=== PATIENT | female | born 1985 | race Caucasian/White ===

== ENCOUNTER 2024-12-04 17:21 | Emergency (ER) | payer SELFPAY ==
[2024-12-04 17:39] VITALS: BP 119/80; PULSE 81; RESP 16; TEMP 37.3; O2SAT 98; BMI 19.9
--- NOTE | 2024-12-04 17:41 | XR_ITS ---
Examination: Ultrasound soft tissue neck Technique: Grayscale sonographic images soft tissue neck Date and time: December 04, 2024, 1904 hrs. Indications: Left neck submental pain and swelling beginning 5 days ago Findings: Small submandibular lymph node 8 x 7 x 11 mm There appears to be a 9 x 10 mm calcification in the left submandibular gland Impression: Small nonspecific submental lymph node Small calcification in the left submandibular gland If symptoms persist, suggest CT soft tissue neck post intravenous contrast follow-up
--- NOTE | 2024-12-04 17:41 | PD.EDRME ---
Rapid Medical Screening Exam RME Arrival date/time: 12/04/24 17:21 39-year-old female with no known medical history presents to the emergency room with a chief complaint of swelling and lumps in the left side of her neck x 4 days that are causing pain and irritation to her left ear I have greeted and performed a focused initial assessment of this patient. A comprehensive ED assessment and evaluation of the patient, analysis of all test results, and completion of the medical decision making process will be conducted by additional ED providers. Chief Complaint: Dental/Oral/Throat Vital signs: Vital Signs Temperature 99.1 F 12/04/24 17:39 Pulse Rate 81 12/04/24 17:39 Respiratory Rate 16 12/04/24 17:39 Blood Pressure 119/80 12/04/24 17:39 Pulse Oximetry (%) 98 12/04/24 17:39 Oxygen Delivery Method Room Air 12/04/24 17:39 Vital signs reviewed by provider: Yes
[2024-12-04 18:04] LABS: Basophils # (Auto) 0.1 Thou/mm3 (0.0-0.2); Basophils % (Auto) 1 % (0-2.5); Eosinophils # (Auto) 0.2 Thou/mm3 (0.0-0.5); Eosinophils % (Auto) 2 % (0-10); Hematocrit 36.4 % (36.0-46.0); Hemoglobin 12.8 g/dL (12.0-16.0); Immature Granulocytes Auto 0.01 Thou/mm3 (0.00-0.00); Lymphocytes # (Auto) 2.3 Thou/mm3 (1.0-4.8); Lymphocytes % (Auto) 33 % (10-50); Mean Corpuscular HGB Conc 35.2 g/dl (31.0-37.0); Mean Corpuscular Hemoglobin 34.1 pg (25.0-35.0); Mean Corpuscular Volume 97 fL (80-100); Monocytes # (Auto) 0.4 Thou/mm3 (0.0-0.8); Monocytes % (Auto) 6 % (0-12); Neutrophils # (Auto) 4.2 Thou/mm3 (1.8-7.7); Neutrophils % (Auto) 58 % (37-80); Nucleated Red Blood Cell # 0.00 Thou/mm3 (0.00-0.00); Nucleated Red Blood Cell % 0 /100 WBC (0); Platelet Count 217 Thou/mm3 (140-440); RDW Standard Deviation 44.8 fL (36.4-46.3); Red Blood Count 3.75 Miln/mm3 (4.00-5.20); White Blood Count 7.1 Thou/mm3 (3.6-11.0)
[2024-12-04 18:29] LABS: Alanine Aminotransferase 13 U/L (10-49); Albumin, Serum 4.5 gm/dL (3.5-5.0); Albumin/Globulin Ratio 1.9 (1.2-2.2); Alkaline Phosphatase 69 U/L (46-116); Anion Gap 8 (7-16); Aspartate Amino Transferase 22 U/L (0-34); BUN/Creatinine Ratio 9 Ratio (12-20); Bilirubin,Total 0.6 mg/dL (0.3-1.2); Blood Urea Nitrogen 7 mg/dL (9-23); Calcium 9.6 mg/dL (8.3-10.6); Calcium (Corrected) 9.6 mg/dL (8.5-10.1); Carbon Dioxide 26.2 mMol/L (20.0-31.0); Chloride 106 mMol/L (98-107); Creatinine (Component) 0.8 mg/dL (0.6-1.3); Estimated Creatinine Clearance 78.6 mL/min (>60); Globulin 2.4 gm/dL (2.3-3.5); Glucose 118 mg/dL (74-106); Osmolality,Calculated 278 (275-295); Potassium 3.7 mMol/L (3.4-5.1); Sodium 140 mMol/L (136-145); Total Protein 6.9 gm/dL (5.7-8.2); eGFR > 60 See Note
--- NOTE | 2024-12-04 21:43 | EDNOTE_ITS ---
ED General RME/HPI General Chief complaint: Dental/Oral/Throat Stated complaint: Left side lower jaw swelling X5 days Time Seen by Provider: 12/04/24 21:34 Arrival date/time: 12/04/24 17:21 CC: Sporadic intermittent left-sided lymphadenopathy HPI ongoing for the past 2 or 3 days this episode resulted in a golf ball size lymph node under the right jaw causing difficulty speaking. The patient states it was there , when she came in but at the time of the assessment it is completely resolved. Patient states she has a long history of lymphadenopathy and has had lymph nodes removed from the right side underneath the jaw. Patient is awake alert and oriented nontoxic-appearing denies any difficulty speaking or difficulty swallowing. Patient denies nausea vomiting headache blurred vision seeing spots. No OTC medicines taken for pain. RME / HPI RME / HPI narrative: 12/04/24 17:21 39-year-old female with no known medical history presents to the emergency room with a chief complaint of swelling and lumps in the left side of her neck x 4 days that are causing pain and irritation to her left ear I have greeted and performed a focused initial assessment of this patient. A comprehensive ED assessment and evaluation of the patient, analysis of all test results, and completion of the medical decision making process will be conducted by additional ED providers. Related Data Previous Rx's ?Medication ?Instructions ?Recorded prednisone 10 mg tablet 10 mg PO BID #8 tabs 5 Allergies Allergy/AdvReac Type Severity Reaction Status Date / Time No Known Allergies Allergy Verified 12/04/24 17:26 Review of Systems Review of Systems Narrative Review of Systems: GEN: No fever, no chills, no weight loss EYES: No discharge, no visual changes, no pain HEENT: No ear pain, no congestion, no sore throat PULM: No shortness of breath, no cough, no congestion CV: No chest pain, no dyspnea on exertion, no palpitations GI: No nausea, no vomiting, no diarrhea, no pain, no constipation : No frequency, no urgency, no dysuria MUSC/SKEL: No joint pain, no back pain SKIN: No rash PSYCH: No hallucinations, no depression HEME/LYMPH: No easy bleeding or bruising tendencies NEURO: No weakness, no headache Past Medical History Past Medical History NEUROLOGIC: Negative Neurological Disorders or Seizures CARDIAC: Negative Cardiac Disorders or Congestive Heart Failure RESPIRATORY: Negative Chronic Obstructive Pulmonary Disease (COPD) or Asthma GASTROINTESTINAL: Negative Gastrointestinal Disorders, Hepatitis or Colorectal Cancer GENITOURINARY: Negative Genitourinary Disorders, Renal Disease or Prostate Cancer REPRODUCTIVE: Positive Previous Pregnancies ( 2003', ); Negative Breast Cancer, Endometriosis, Pelvic Inflammatory Disease, Testicular Cancer or Uterine Prolapse MUSCULOSKELETAL: Negative Musculoskeletal Disorders, Bone Cancer or Carpal Tunnel Syndrome ENT: Negative Cataracts ENDOCRINE: Negative Endocrine Disorders, Diabetes Mellitus Type 1 or Diabetes Mellitus Type 2 HEMATOLOGIC: Positive Anemia; Negative Blood Disorders, Leukemia, Hemophilia, Thalassemia, Sickle Cell Disease or Clotting Problems OTHER HISTORY: Negative Hospitalization, Autoimmune Disease, Down Syndrome, Developmental Delay, Shingles, Falls, Blood Transfusions, Blood Transfusion Reaction, Anesthesia Reactions, Organ Transplant, Chemotherapy, Radiation Therapy, Hyperbaric Therapy, MRSA, VRSA, Vancomycin-Resistant Enterococci, Human Immunodeficiency Virus (HIV), Chicken Pox, Measles, Mumps, Rubella ([place] Measles), Pertussis, Clostridium Difficile, Breast Cancer, Cervical Cancer, Colorectal Cancer, Lung Cancer, Ovarian Cancer, Prostate Cancer or Testicular Cancer Family History FAMILY HISTORY: Negative Family Psychiatric Problems, Family Respiratory Disorders, Family Cardiac Disorders, Family Gastrointestinal Problems, Family Cancer, Family Surgery or Family Anesthesia Reaction Surgical History SURGICAL: Positive Section; Negative Cardiac Surgery, Open Heart Surgery, Coronary Artery Bypass Graft, Valve Replacement, Vascular Surgery, Coronary Stent, Cardiac Catheterization, Pacemaker, Angiogram, Auto Implanted Cardiovert Defib, Carotid Endarterectomy, Endocrine Surgery, Thyroidectomy, Ear Surgery, Tympanostomy Tube, Eye Surgery, Nose Surgery, Oral Surgery, Tonsillectomy, Adenoidectomy, Cochlear Implant, Corneal Transplant, Throat Surgery, Abdominal Surgery, Tracheostomy, Gastric Bypass Surgery, Gastrostomy, Bowel Surgery, Nephrectomy, Transurethral Resection, Joint Replacement, Amputation, Open Reduction Internal Fixation, Arthroscopy, Neurologic Surgery, Brain Shunt, Mastectomy, Lumpectomy, Hysterectomy, Tubal Ligation or Organ Transplant Social History SMOKING STATUS: Current every day smoker SECOND HAND EXPOSURE: No SUBSTANCE USE: marijuana (X1 monthly ) ED Exam Narrative Physical exam: [General: Not in any acute distress Head normocephalic HEENT: Eyes pupils are PERRLA EOMs are intact mouth pink moist membranes uvula is midline swallow symmetrical uvula is midline no asymmetry in the posterior pharynx all of the subsystems of HEENT are within acceptable limits Neck is supple no submandibular lymphadenopathy on both sides of the ramus. No anterior posterior cervical chain lymphadenopathy. Swallow symmetrical phonation is normal. Chest equal chest rise nontender to palpation Respiratory: Clear to auscultation no wheezes crackles or rubs CV: Rate rhythm is regular no murmurs rubs or clicks Abdomen is soft nontender no masses positive bowel sounds all 4 quadrants Back: No CVA tenderness no spinous process tenderness from cervical spine thoracic and lumbar spine Skin: Intact no petechiae rash induration ulceration or crepitus Extremities: Moving all extremity against resistance cap refill less than 2 seconds neurosensory intact Neuro: Awake alert oriented x3 Glascow coma 15 no focal deficits] Course Quality Measures none Orders Category Date Time Status US soft tissue head neck Stat Exams 12/04/24 17:41 Completed CBC Stat Lab 12/04/24 17:53 Completed CMP [Comprehensive Metabolic Panel] Stat Lab 12/04/24 17:53 Completed Vital Signs Vital signs: Vital Signs Temperature 99.1 F 12/04/24 17:39 Pulse Rate 81 12/04/24 17:39 Respiratory Rate 16 12/04/24 17:39 Blood Pressure 119/80 12/04/24 17:39 Pulse Oximetry (%) 98 12/04/24 17:39 Oxygen Delivery Method Room Air 12/04/24 17:39 Discharge Plan Plan Patient Disposition: HOME (Self Care) Patient condition on transfer: Stable Prescriptions/Referrals Prescriptions/Med Rec: New prednisone 10 mg tablet 10 mg PO BID Qty: 8 0RF Taper: Prednisone Taper 20 mg DAILY for 2 Days and 0 Hour 10 mg DAILY for 2 Days and 0 Hour 5 mg DAILY for 7 Days and 0 Hour Referrals: Luis Fernando Gomez MD [Primary Care Provider, Family Practice] - In 1 week Problem List Clinical Impression: Lymphadenopathy Patient/Caregiver Discharge Instructions Other Activity Instructions:: In addition to the steroids please take 400 mg of ibuprofen every 8 hours for the next 2 days make sure you take all these medications with food. Any worsening symptoms return the emergency room medially for further evaluation. Education Materials: Lymphadenopathy Print Language: Tamazight Stand Alone Forms: [employer] Award Info., Patient Portal Info Letter, Work/School Release PA/DRAG SEINER Supervising Physician PA/DRAG SEINER Supervising Physician: Sylvester Zuluaga ENP MDM Clinical Information Provided by patient Medical Records Reviewed [facility] Meds/Rx Considered, not Ordered None Labs/Rad/Tests considered, not Ordered None Chronic Illness/Social Conditions which may negatively complicate care or outcome(s)-explain: None or not applicable EKG EKG not done Lab Interpretation Lab(s) interpretation(s): CBC shows no acute leukocytosis anemia thrombocytopenia CMP shows no significant electrolyte imbalances renal impairment transaminitis or T. bili elevation Imaging Provider imaging interpretation(s): Soft tissue ultrasound as interpreted by me read by radiology shows submental lymphadenopathy. With a calcified submandibular lymph node. Medication Administration(s) none Patient will be discharged home with small amount of steroids. Patient advised to follow-up with a primary care doctor and seek referral to an teacher hearing impaired. Diagnosis Differential diagnosis: Lymphadenopathy necrotic lymph node facial cellulitis Most likely dx, and/or detailed dx discussion: Lymphadenopathy Dispositon Disposition: Discharge Home
== END 2024-12-04 21:52 | disposition home or self-care (01) ==
PROVIDERS: Nurse Practitioner Family; Emergency Provider Emergency Medicine; PCP Family Medicine
DX: R59.0 Localized enlarged lymph nodes (principal)
CPT/HCPCS: 36415; 76536; 80053; 85025; 99283

== ENCOUNTER → 2025-01-09 | Outpatient (CLI) | payer BC, SELFPAY ==
[2025-01-09 16:55] LABS: Thyroid Stimulating Hormone 0.83 uIU/mL (0.55-4.78); Vitamin B12 1144 pg/mL (211-911)
[2025-01-14 17:49] LABS: EBV EBNA Ab (IgG) 435.00 U/mL; EBV VCA Ab (IgG) 433.00 U/mL; EBV VCA Ab (IgM) <36.00 U/mL
[2025-01-15 07:25] LABS: EBV Ab Interpretation PAST
== END | disposition home or self-care (01) ==
PROVIDERS: PCP Family Medicine; Referring Provider Family Medicine; Visit Provider Family Medicine
DX: R53.83 Other fatigue (principal)
CPT/HCPCS: 36415; 82607; 84443; 86664; 86665

== ENCOUNTER → 2025-03-20 | Outpatient (CLI) | payer BC, SELFPAY ==
--- NOTE | 2025-03-20 13:00 | XR_ITS ---
Examination: Breast ultrasound complete, bilateral Date and time of exam: March 20, 2025, 1257 hours INDICATIONS: Nipple discharge several weeks, bilateral Technique: Real-time grayscale ultrasonographic imaging bilateral breasts, including all 4 quadrants as well as nipple retroareolar and axillary regions. Findings: Sonographic images right breast 9:00 cyst 7 x 7 mm 9:00 cyst 5 x 6 mm No solid nodules Sonographic images left breast 2:00 cyst 7 x 6 mm 11:00 cyst 7 x 8 mm No solid nodules Smaller cysts IMPRESSION: BI-RADS Category 2: Benign findings
[2025-03-20 15:58] LABS: Glucose Estimated Average 94 mg/dL (80-131); Hemoglobin A1C 4.9 % Hgb (4.8-6.0)
== END | disposition home or self-care (01) ==
PROVIDERS: PCP Family Medicine; Referring Provider Family Medicine; Visit Provider Family Medicine
DX: N64.52 Nipple discharge (principal)
CPT/HCPCS: 36415; 76641; 83036; 84146